=== PATIENT | female | born 1950 | race Caucasian/White ===

== ENCOUNTER 2018-04-27 16:23 | Emergency (ER) | payer OTHER ==
[~2018-04-27] VITALS: Ht 167.6 cm; Wt 126.8 kg
[2018-04-27 16:40] VITALS: BP 118/65
[2018-04-27] MEDS ORDERED: rabies vaccine (PCEC)/PF 2.5 unit kit IMVAC ONE (16:45)
== END 2018-04-27 17:21 | disposition home or self-care (01) ==
LOC: ER 16:25
DX: Z23 Encounter for immunization (principal)
CPT/HCPCS: 90471; 90675; 99283

== ENCOUNTER 2018-05-04 15:06 | Emergency (ER) | payer OTHER ==
[~2018-05-04] VITALS: Ht 167.6 cm; Wt 127.0 kg
[2018-05-04 16:19] VITALS: BP 112/55
[2018-05-04] MEDS ORDERED: rabies vaccine (PCEC)/PF 2.5 unit kit IMVAC ONE (16:25)
== END 2018-05-04 17:07 | disposition home or self-care (01) ==
LOC: ER 15:06
DX: Z23 Encounter for immunization (principal)
CPT/HCPCS: 90471; 90675; 96372; 99283

== ENCOUNTER 2023-03-27 06:32 | Day surgery (SDC) | payer MEDICARE, BC ==
[2023-03-26 10:39] LABS: BASOPHILS # (AUTO) 0.1 X10'3 (0-0.2); EOSINOPHILS # (AUTO) 0.3 X10'3 (0-0.9); EOSINOPHILS % (AUTO) 3.1 % (0-6); LYMPHOCYTES # (AUTO) 2.6 X10'3 (1.1-4.8); MEAN CORPUSCULAR HEMOGLOBIN 29.7 PG (27.0-31.0); MEAN CORPUSCULAR HGB CONC 33.9 g/dL (33.0-36.5); MEAN CORPUSCULAR VOLUME 87.7 FL (78-98); MONOCYTES # (AUTO) 0.9 X10'3 (0-0.9); MONOCYTES % (AUTO) 9.4 % (2-12); NEUTROPHILS % (AUTO) 60.5 % (42-75); PRE OP HEMATOCRIT 42.5 % (35.0-45.0); PRE OP HEMOGLOBIN 14.4 g/dL (12.0-16.0); PRE OP PLATELET COUNT 287 X10'3 (140-440); PRE OP WHITE BLOOD COUNT 9.9 10'3 (4.8-10.8); RED BLOOD COUNT 4.85 X10'6 (4.20-5.60); RED CELL DISTRIBUTION WIDTH 13.5 % (11.5-14.5)
[2023-03-26 10:53] LABS: ALBUMIN 3.4 G/DL (3.4-5.0); ALBUMIN/GLOBULIN RATIO 0.9 (1.1-1.5); CALCIUM 8.7 MG/DL (8.5-10.1); PRE OP ALT 21 U/L (30-65); PRE OP POTASSIUM 3.9 MMOL/L (3.4-5.1); PRE OP SODIUM 141 MMOL/L (135-145); TOTAL PROTEIN 7.3 G/DL (6.4-8.2)
[2023-03-26 11:11] LABS: ALKALINE PHOSPHATASE 48 IU/L (46-116); BLOOD UREA NITROGEN 15 MG/DL (7-18); CHLORIDE 107 MMOL/L (99-107); CREATININE 0.94 MG/DL (0.40-0.90); PRE OP ANION GAP 8 (8-16); PRE OP AST 17 U/L (10-37); PRE OP GLUCOSE 108 MG/DL (70-104); TOTAL CARBON DIOXIDE 26.3 MMOL/L (24-32); eGFR 59 ML/MIN
[2023-03-26 11:36] LABS: PRE OP BILIRUB, TOTAL 1.1 MG/DL (0.0-1.0)
[~2023-03-27] VITALS: Ht 165.1 cm; Wt 130.1 kg
[2023-03-27] VITALS (8 sets, daily range): BP systolic 105–128; BP diastolic 72–93; PULSE 71–86; RESP 12–17; TEMP 97.5–98.5; O2SAT 93–97
[~2023-03-27 06:32] MED LIST: CELE-85 PO; ceFAZolin inj. 3,000 MG in normal saline 100ml IV soln 100 ML IV ONE; famotidine 20mg tablet PO ONE; ringers solution, lacted 1,000 ML IV SCH
[2023-03-27] MEDS ORDERED: BUPIVAcaine/PF 2.5 mg/ml (0.25%) 30ml vial ONE (06:40)
[2023-03-27] MEDS ORDERED: LIDOcaine 0.5% (5mg/ml) 50ml vial ONE (07:19)
[2023-03-27] MEDS ORDERED: midazolam 1 mg/ML 2ml injection ONE (08:46)
[2023-03-27] MEDS ORDERED: fentaNYL/PF 50MCG/1 ML 2ML syringe ONE ×2 (08:46→09:00)
--- NOTE | 2023-03-27 09:18 | NUR ---
Received from OR via [facility], accompanied by Anesthesiologist and report given by CHIP Anesthesiologist. PATIENT WAKING UP, DENIES PAIN, V/S WNL, PIV 20G TO RIGHT HAND, LEFT WRIST DRESSING C/D/I. ICE AND ELEVATED LUE. Addendum: 03/27/23 at 0936 by Sagar Saunders RN Amended: Links added.
[2023-03-27] MEDS ORDERED: HYDROcodone/acetaminophen 5mg/325mg tablet PO ONE (09:55)
--- NOTE | 2023-03-27 10:23 | NUR ---
ALL DISCHARGE CRITERIA HAS BEEN MET. VSS, PAIN AT A TOLERABLE LEVEL, ABLE TO SAFELY AMBULATE AND TRANSFER SELF. IV TAKEN OUT WITHOUT ANY COMPLICATIONS. ALL DISCHARGE INSTRUCTIONS COVERED WITH PATIENT AND ALL QUESTIONS ANSWERED. PATIENT TAKEN OUT VIA WHEELCHAIR WITH ALL BELONGINGS TO PERSONAL VEHICLE WHERE FAMILY DROVE PATIENT HOME. Addendum: 03/27/23 at 1028 by Sagar Saunders RN Amended: Links added.
== END 2023-03-27 10:23 | disposition home or self-care (01) ==
LOC: PAS 06:32
PROVIDERS: ATTEND Orthopaedic Surgery Hand Surgery
DX: G56.02 Carpal tunnel syndrome, left upper limb (principal); M65.322 Trigger finger, left index finger; M19.90 Unspecified osteoarthritis, unspecified site; E66.01 Morbid (severe) obesity due to excess calories; Z68.42 Body mass index [BMI] 45.0-49.9, adult; Z87.891 Personal history of nicotine dependence; Z90.49 Acquired absence of other specified parts of digestive tract; Z90.710 Acquired absence of both cervix and uterus; Z98.890 Other specified postprocedural states; Z85.828 Personal history of other malignant neoplasm of skin; Z79.899 Other long term (current) drug therapy
CPT/HCPCS: 26055; 36415; 64721; 80053; 82948; 85025; 93005; J0690; J2250; J3010; J3490; J7030; J7120; Z7506; Z7512; A4215

== ENCOUNTER 2023-04-27 07:44 | Day surgery (SDC) | payer MEDICARE, BC ==
[2023-04-23 13:34] LABS: BASOPHILS # (AUTO) 0.1 X10'3 (0-0.2); BASOPHILS % (AUTO) 0.5 % (0-1); EOSINOPHILS # (AUTO) 0.3 X10'3 (0-0.9); EOSINOPHILS % (AUTO) 2.7 % (0-6); LYMPHOCYTES # (AUTO) 2.4 X10'3 (1.1-4.8); LYMPHOCYTES % (AUTO) 24.5 % (21-51); MEAN CORPUSCULAR HEMOGLOBIN 29.3 PG (27.0-31.0); MEAN CORPUSCULAR HGB CONC 33.4 g/dL (33.0-36.5); MEAN CORPUSCULAR VOLUME 87.7 FL (78-98); MEAN PLATELET VOLUME 7.1 FL (7.4-10.4); MONOCYTES # (AUTO) 0.9 X10'3 (0-0.9); MONOCYTES % (AUTO) 9.2 % (2-12); NEUTROPHILS # (AUTO) 6.2 X10'3 (1.8-7.7); NEUTROPHILS % (AUTO) 63.1 % (42-75); PRE OP HEMATOCRIT 45.4 % (35.0-45.0); PRE OP HEMOGLOBIN 15.2 g/dL (12.0-16.0); PRE OP PLATELET COUNT 337 X10'3 (140-440); PRE OP WHITE BLOOD COUNT 9.8 10'3 (4.8-10.8); RED BLOOD COUNT 5.17 X10'6 (4.20-5.60); RED CELL DISTRIBUTION WIDTH 13.3 % (11.5-14.5)
[2023-04-23 13:48] LABS: ALANINE AMINOTRANSFERASE 26 U/L (12-78); ALBUMIN 3.6 G/DL (3.4-5.0); ALBUMIN/GLOBULIN RATIO 0.9 (1.1-1.5); ALKALINE PHOSPHATASE 54 IU/L (46-116); ANION GAP 9 (8-16); ASPARTATE AMINO TRANSFERASE 21 U/L (10-37); BILIRUBIN,TOTAL 1.2 MG/DL (0.1-1.0); BLOOD UREA NITROGEN 18 MG/DL (7-18); BUN/CREATININE RATIO 18.8 (10.0-20.0); CALCIUM 9.2 MG/DL (8.5-10.1); CHLORIDE 106 MMOL/L (99-107); CREATININE 0.96 MG/DL (0.40-0.90); GLUCOSE 98 MG/DL (70-104); POTASSIUM 3.9 MMOL/L (3.5-5.1); SODIUM 140 MMOL/L (135-145); TOTAL CARBON DIOXIDE 25.4 MMOL/L (24-32); TOTAL PROTEIN 7.7 G/DL (6.4-8.2); eGFR 57 ML/MIN
[~2023-04-27] VITALS: Ht 165.1 cm; Wt 128.0 kg
[2023-04-27] VITALS (8 sets, daily range): BP systolic 107–124; BP diastolic 68–105; PULSE 66–78; RESP 13–17; TEMP 98.8; O2SAT 93–97
[~2023-04-27 07:44] MED LIST changes: +BUPIVAcaine/PF 2.5mg/ml (0.25%) 10ml vial ONE; +CELE-127 PO; -CELE-85 PO; -ceFAZolin inj. 3,000 MG in normal saline 100ml IV soln 100 ML IV ONE; +cefazolin 2gm/D5W 100mL 100 ML IV ONE
[2023-04-27] MEDS ORDERED: ringers solution, lacted 1,000 ML IV SCH (08:00)
[2023-04-27] MEDS ORDERED: morphine 2 MG/ML inj. syringe IV PRN (08:00)
[2023-04-27] MEDS ORDERED: proCHLORperazine 10 MG/2 ml inj IV PRN (08:00)
[2023-04-27] MEDS ORDERED: meperidine/PF 25mg/ml syringe IV PRN ×3 (08:00)
[2023-04-27] MEDS ORDERED: ondansetron/PF 4mg/2ml inj IV PRN (08:00)
[2023-04-27] MEDS ORDERED: morphine 4 MG/ML inj SYRINge IV PRN (08:00)
[2023-04-27] MEDS ORDERED: propofol inj 20 ML IV ONE (09:09)
[2023-04-27] MEDS ORDERED: fentaNYL/PF 50MCG/1 ML 2ML syringe ONE (09:09)
[2023-04-27] MEDS ORDERED: midazolam 1 mg/ML 2ml injection ONE (09:09)
[2023-04-27] MEDS ORDERED: LIDOcaine 0.5% (5mg/ml) 50ml vial ONE (09:10)
--- NOTE | 2023-04-27 09:33 | NUR ---
Received from OR via [facility] TO [facility] , accompanied by Anesthesiologist DR MENDOZA and report given by Anesthesiologist. PT PRESENTS ON RA. VSS. NO C/O PAIN OR NAUSEA FROM PATIENT AND NO S/S OF DISTRESS. APPLIED ICE TO RIGHT WRIST AND ELEVATED LIMB. DRESSING CDI. WILL CONTINUE TO ASSESS.
--- NOTE | 2023-04-27 10:53 | NUR ---
PT STABLE FOR D/C PER MD ORDERS. PATIENT A&OX4, DENIES PAIN, V/S WNL, SCD OFF, 20G TO L HAND D/C, RIGHT WRIST DRESSING CDI. ICE AND ELEVATED RUE. I HAVE REVIEWED D/C INSTRUCTIONS WITH PATIENT AND SHE HAS VERBALIZED UNDERSTANDING. ALL QUESTIONS, COMMENTS AND CONCERNS HAVE BEEN ANSWERED. PT WAS ABLE TO GET DRESSED AND TRANSFER TO W/C WITHOUT ASSISTANCE. PT WHEELED TO PRIVATE VEHICLE WHERE SON, VISHNU WAS WAITING. ALL PERSONAL BELONGINGS SENT WITH PATIENT AND PATIENT TRANSFERRED INTO CAR WITHOUT INCIDENT.
== END 2023-04-27 10:53 | disposition home or self-care (01) ==
LOC: PRE-OP 07:44
PROVIDERS: ATTEND Orthopaedic Surgery Hand Surgery
DX: G56.01 Carpal tunnel syndrome, right upper limb (principal); M19.90 Unspecified osteoarthritis, unspecified site; E66.9 Obesity, unspecified; Z68.42 Body mass index [BMI] 45.0-49.9, adult; Z90.710 Acquired absence of both cervix and uterus; Z90.49 Acquired absence of other specified parts of digestive tract; Z98.890 Other specified postprocedural states; Z87.891 Personal history of nicotine dependence; Z85.828 Personal history of other malignant neoplasm of skin; Z79.899 Other long term (current) drug therapy
CPT/HCPCS: 36415; 64721; 80053; 82948; 85025; J0690; J2250; J2704; J3010; J3490; J7030; J7120; Z7506; Z7512; A4215